=== PATIENT | male | born 1970 | race Caucasian/White ===

== ENCOUNTER 2018-03-20 12:48 | Emergency (ER) | payer MEDICAID ==
[~2018-03-20] VITALS: Ht 172.7 cm; Wt 131.5 kg
[2018-03-20] MEDS ORDERED: Depo-Testos200 MG/ML IM (13:07)
[2018-03-20] MEDS ORDERED: Prinivil10 MG PO (13:07)
[2018-03-20] MEDS ORDERED: CHLO25B PO (13:07)
== END 2018-03-20 14:03 | disposition home or self-care (01) ==
LOC: ER 12:48
DX: M79.81 Nontraumatic hematoma of soft tissue (principal); I10 Essential (primary) hypertension; F17.200 Nicotine dependence, unspecified, uncomplicated; Z79.899 Other long term (current) drug therapy
CPT/HCPCS: 73590; 99283-25

== ENCOUNTER 2020-07-15 18:48 | Emergency (ER) | payer OTHER ==
[~2020-07-15] VITALS: Ht 172.7 cm; Wt 142.9 kg
[~2020-07-15 18:48] MED LIST: CHLO25B PO; Depo-Testos200 MG/ML IM; Prinivil10 MG PO
[2020-07-15 20:08] LABS: Source, Urine Voided
[2020-07-15 20:11] LABS: Appearance, Urine Clear (Clear); Bilirubin, Urine Neg (Neg); Blood, Urine 2+ (Neg); Color, Urine Yellow (P-Yellow); Glucose Qualitative, Urine Neg (Neg); Ketones, Urine Neg (Neg); Leukocyte Esterase, Urine Neg (Neg); Nitrite, Urine Neg (Neg); Protein, Urine 3+ (Neg); Urobilinogen, Urine 3+ (Normal)
[2020-07-15 20:13] LABS: BASOPHILS ABSOLUTE AUTO 0.09 K/mm3 (0.00-0.23); BASOPHILS PERCENT AUTO 1 % (0-2); EOSINOPHILS ABSOLUTE AUTO 0.01 K/mm3 (0.00-0.68); EOSINOPHILS PERCENT AUTO 0 % (0-6); Hemoglobin 19.2 g/dL (13.5-17.5); IMMATURE GRAN ABSOLUTE AUTO 0.36 K/mm3 (0.00-0.10); IMMATURE GRAN PERCENT AUTO 3 % (0-1); LYMPHOCYTES ABSOLUTE AUTO 1.93 K/mm3 (0.84-5.20); LYMPHOCYTES PERCENT AUTO 17 % (21-46); MONOCYTES ABSOLUTE AUTO 0.89 K/mm3 (0.16-1.47); MONOCYTES PERCENT AUTO 8 % (4-13); Mean Corpuscular HGB 30.3 pg (26.0-34.0); Mean Corpuscular HGB Conc 32.5 g/dL (31.5-36.5); Mean Corpuscular Volume 93 fL (80-100); Mean Platelet Volume 11.1 fL (9.1-12.4); NEUTROPHILS ABSOLUTE AUTO 8.25 K/mm3 (1.96-9.15); NEUTROPHILS PERCENT AUTO 72 % (41-73); NRBC ABSOLUTE 0.05 K/mm3 (0.00-0.02); NRBC Auto 0.4 /100 WBC (0.0-0.2); Platelet Count 171 K/mm3 (150-400); RDW Coefficient Variation 16.1 % (11.7-14.2); RDW Standard Deviation 51.7 fL (35.1-46.3); Red Blood Cell Count 6.34 M/mm3 (4.30-5.90); White Blood Cell Count 11.53 K/mm3 (4.00-11.30)
[2020-07-15 20:18] LABS: Hematocrit 59.1 % (37.0-53.0)
[2020-07-15 20:20] LABS: Bacteria Few /hpf; Red Blood Cells, Urine 0-2 /hpf (0-2); Squamous Epithelial Cells Not Seen /hpf (Few); White Blood Cells, Urine 0-2 /hpf (0-5)
[2020-07-15 20:28] LABS: Alanine Aminotransfer (ALT/SGP 112 U/L (12-78); Albumin, Blood 4.1 g/dL (3.4-5.0); Albumin/Globulin Ratio 1.1 (0.8-1.8); Alk Phos 97 U/L (50-136); Anion Gap 3 mmol/L (6-16); Aspartate Aminotrans (AST/SGOT 40 U/L (12-37); Bilirubin, Total 0.7 mg/dL (0.1-1.0); Blood Urea Nitrogen 12 mg/dL (8-24); CO2, Blood 35 mmol/L (21-32); Calcium, Blood 9.8 mg/dL (8.5-10.1); Chloride, Blood 99 mmol/L (98-108); Creatinine, Blood 0.86 mg/dL (0.60-1.20); Globulin, Blood 3.7 g/dL (2.2-4.0); Glomerular Filtration Rate >60 (60-); Glucose, Blood 132 mg/dL (70-99); Potassium, Blood 4.3 mmol/L (3.5-5.5); Sodium, Blood 137 mmol/L (136-145); Total Protein, Blood 7.8 g/dL (6.4-8.2)
[2020-07-15] MEDS ORDERED: FURO20 PO (20:40)
[2020-07-15] MEDS ORDERED: HYDCHL25 PO (20:41)
== END 2020-07-16 00:54 | disposition home or self-care (01) ==
LOC: ER 18:48
PROVIDERS: Physician Assistant
DX: I11.0 Hypertensive heart disease with heart failure (principal); I50.9 Heart failure, unspecified
CPT/HCPCS: 36415; 71046; 74177; 80053; 81001; 83690; 83880; 84484; 85025; 93005; 93010; 96374; 99285-25; J1940; Q9967

== ENCOUNTER → 2021-02-12 | Outpatient (CLI) | payer OTHER ==
[~2021-02-12] MED LIST changes: +FURO20 PO; +HYDCHL25 PO
== END | disposition home or self-care (01) ==
LOC: LAB SHORT 19:05 → LAB 19:05
DX: L97.929 Non-pressure chronic ulcer of unspecified part of left lower leg with unspecified severity (principal)
CPT/HCPCS: 87070; 87075; 87205

== ENCOUNTER 2021-02-28 16:52 | Inpatient (IN) | payer OTHER ==
[~2021-02-28] VITALS: Ht 177.8 cm; Wt 140.5 kg
[2021-02-28 17:26] LABS: BASOPHILS ABSOLUTE AUTO 0.09 K/mm3 (0.00-0.23); BASOPHILS PERCENT AUTO 1 % (0-2); EOSINOPHILS PERCENT AUTO 0 % (0-6); Hematocrit 54.3 % (37.0-53.0); Hemoglobin 18.5 g/dL (13.5-17.5); IMMATURE GRAN ABSOLUTE AUTO 0.47 K/mm3 (0.00-0.10); IMMATURE GRAN PERCENT AUTO 3 % (0-1); LYMPHOCYTES ABSOLUTE AUTO 1.63 K/mm3 (0.84-5.20); LYMPHOCYTES PERCENT AUTO 10 % (21-46); MONOCYTES ABSOLUTE AUTO 0.81 K/mm3 (0.16-1.47); MONOCYTES PERCENT AUTO 5 % (4-13); Mean Corpuscular HGB 30.1 pg (26.0-34.0); Mean Corpuscular HGB Conc 34.1 g/dL (31.5-36.5); Mean Corpuscular Volume 88 fL (80-100); Mean Platelet Volume 12.5 fL (9.1-12.4); NEUTROPHILS PERCENT AUTO 83 % (41-73); Platelet Count 276 K/mm3 (150-400); RDW Coefficient Variation 13.2 % (11.7-14.2); RDW Standard Deviation 42.7 fL (35.1-46.3); Red Blood Cell Count 6.15 M/mm3 (4.30-5.90)
[2021-02-28 17:48] LABS: Troponin I <0.015 ng/mL (0.000-0.040)
[2021-02-28 17:58] LABS: Alanine Aminotransfer (ALT/SGP 61 U/L (12-78); Albumin, Blood 4.1 g/dL (3.4-5.0); Albumin/Globulin Ratio 0.8 (0.8-1.8); Alk Phos 126 U/L (50-136); Anion Gap 24 mmol/L (6-16); Aspartate Aminotrans (AST/SGOT 49 U/L (12-37); Bilirubin, Total 0.9 mg/dL (0.1-1.0); Blood Urea Nitrogen 21 mg/dL (8-24); Bun/Creatinine Ratio 20.2 (12.0-20.0); CO2, Blood 6 mmol/L (21-32); Calcium, Blood 9.2 mg/dL (8.5-10.1); Chloride, Blood 93 mmol/L (98-108); Creatinine, Blood 1.04 mg/dL (0.60-1.20); Globulin, Blood 4.9 g/dL (2.2-4.0); Glomerular Filtration Rate >60 (60-); Glucose, Blood 483 mg/dL (70-99); Potassium, Blood 6.2 mmol/L (3.5-5.5); Sodium, Blood 123 mmol/L (136-145)
[2021-02-28 19:05] LABS: SARS-Cov-2 (COVID-19) PCR, MMC NEGATIVE (NEGATIVE)
[2021-02-28 19:06] LABS: Base Excess Venous -25.5 mmol/L; Bicarbonate Venous 9.4 mmol/L (24.0-30.0); PCO2 Venous 18.4 mmHg (38-42); PO2 Venous 187 mmHg (38-42); pH Blood Venous 7.04 (7.34-7.37)
[2021-02-28 19:51] LABS: Magnesium, Blood 2.4 mg/dL (1.6-2.4)
[2021-02-28] MEDS ORDERED: Aspir 8181 MG PO (19:52)
[2021-02-28] MEDS ORDERED: ATOR40TA PO (19:52)
[2021-02-28] MEDS ORDERED: SPIR25 PO (19:53)
[2021-02-28] MEDS ORDERED: METO50 PO (19:53)
[2021-02-28] MEDS ORDERED: TORSE20 PO (19:54)
[2021-02-28 19:55] LABS: Beta-hydroxybutyrate 111.6 mg/dL (0.2-2.8); Phosphorus, Blood 5.2 mg/dL (2.5-4.9)
[2021-02-28 21:13] LABS: Source, Urine Voided
[2021-02-28 21:18] LABS: Appearance, Urine Clear (Clear); Bilirubin, Urine Neg (Neg); Blood, Urine 4+ (Neg); Color, Urine Yellow (P-Yellow); Glucose Qualitative, Urine 4+ (Neg); Ketones, Urine 4+ (Neg); Leukocyte Esterase, Urine Neg (Neg); Nitrite, Urine Neg (Neg); Protein, Urine 3+ (Neg); Specific Gravity, Urine 1.025 (1.003-1.022); Urobilinogen, Urine NORM (Normal)
[2021-02-28 21:53] LABS: Amorphous Light (0-Heavy); Bacteria Rare /hpf; Squamous Epithelial Cells Rare /hpf (Few); White Blood Cells, Urine 0-2 /hpf (0-5)
--- NOTE | 2021-02-28 23:20 | NUR ---
ARRIVAL TO UNIT FROM ED
--- NOTE | 2021-03-01 00:07 | NUR ---
EXTRA DOSE OF HYDRALAZINE GIVEN, OKAY PER DR. SAVAGE, ORDER CHANGE TO 10-20 PRN. SBP CURRENTLY > 200
[2021-03-01 00:11] LABS: Anion Gap 21 mmol/L (6-16); Blood Urea Nitrogen 18 mg/dL (8-24); Bun/Creatinine Ratio 18.5 (12.0-20.0); CO2, Blood 9 mmol/L (21-32); Calcium, Blood 8.6 mg/dL (8.5-10.1); Chloride, Blood 101 mmol/L (98-108); Creatinine, Blood 0.97 mg/dL (0.60-1.20); Glomerular Filtration Rate >60 (60-); Glucose, Blood 224 mg/dL (70-99); Potassium, Blood 4.1 mmol/L (3.5-5.5); Sodium, Blood 131 mmol/L (136-145)
--- NOTE | 2021-03-01 00:11 | NUR ---
DR. SAVAGE NOTIFIED OF CO2 @ 9
--- NOTE | 2021-03-01 02:32 | NUR ---
Dr. Tam notified that bicarb fluid not started because glucose is < 200. See new orders.
[2021-03-01 04:02] LABS: BASOPHILS ABSOLUTE AUTO 0.03 K/mm3 (0.00-0.23); BASOPHILS PERCENT AUTO 0 % (0-2); EOSINOPHILS PERCENT AUTO 0 % (0-6); Hemoglobin 15.6 g/dL (13.5-17.5); IMMATURE GRAN ABSOLUTE AUTO 0.25 K/mm3 (0.00-0.10); IMMATURE GRAN PERCENT AUTO 2 % (0-1); LYMPHOCYTES ABSOLUTE AUTO 1.28 K/mm3 (0.84-5.20); LYMPHOCYTES PERCENT AUTO 8 % (21-46); MONOCYTES PERCENT AUTO 7 % (4-13); Mean Corpuscular HGB 29.7 pg (26.0-34.0); Mean Corpuscular HGB Conc 33.9 g/dL (31.5-36.5); Mean Corpuscular Volume 88 fL (80-100); Mean Platelet Volume 12.8 fL (9.1-12.4); NEUTROPHILS ABSOLUTE AUTO 12.68 K/mm3 (1.96-9.15); NEUTROPHILS PERCENT AUTO 83 % (41-73); Platelet Count 223 K/mm3 (150-400); RDW Coefficient Variation 13.2 % (11.7-14.2); RDW Standard Deviation 42.3 fL (35.1-46.3); Red Blood Cell Count 5.26 M/mm3 (4.30-5.90); White Blood Cell Count 15.34 K/mm3 (4.00-11.30)
[2021-03-01 05:07] LABS: Alanine Aminotransfer (ALT/SGP 40 U/L (12-78); Albumin, Blood 3.2 g/dL (3.4-5.0); Albumin/Globulin Ratio 0.8 (0.8-1.8); Alk Phos 94 U/L (50-136); Anion Gap 20 mmol/L (6-16); Aspartate Aminotrans (AST/SGOT 19 U/L (12-37); Bilirubin, Total 0.6 mg/dL (0.1-1.0); Blood Urea Nitrogen 15 mg/dL (8-24); Bun/Creatinine Ratio 19.4 (12.0-20.0); CO2, Blood 10 mmol/L (21-32); Calcium, Blood 8.5 mg/dL (8.5-10.1); Chloride, Blood 104 mmol/L (98-108); Creatinine, Blood 0.77 mg/dL (0.60-1.20); Globulin, Blood 3.8 g/dL (2.2-4.0); Glomerular Filtration Rate >60 (60-); Glucose, Blood 171 mg/dL (70-99); Potassium, Blood 3.8 mmol/L (3.5-5.5); Sodium, Blood 134 mmol/L (136-145)
--- NOTE | 2021-03-01 06:48 | NUR ---
END OF SHIFT SUMMARY: PATIENT HAS LLE SWELLING, REDNESS, PAIN TO PALPATION, AND PULSE IS NOT PALPABLE - ABLE TO HEAR WITH DOPPLER -DIFFICULTY MAINTAINING SBP<[address] GIBSON AWARE OF SBPs>200s. HYDRALAZINE PRN NOT EFFECTIVE. LABETOLOL EFFECTIVE BUT ONLY Q6PRN. 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 PATIENT REQUIRES REASSURANCE AND CALMING METHODS INTERMITTENTLY. - FENTANYL INEFFECTIVE FOR PATIENTS BACK PAIN. DILAUDED RELIEVED PAIN ENOUGH FOR PATIENT TO BE ABLE TO FALL ASLEEP. -NO BM OVERNIGHT. URINATING WITH URINAL - ADEQUATE OUTPUT. -INSULIN GTTs ARE FOLLOWS (ESTIMATED FSBS TIMES - SEE LAB FOR EXACT TIMES) @5 - FSBS 340 - INSULIN @ 12U/HR @2215 - FSBS 261 - INSULIN @ 10 @2315 - FSBS 262 - INSULIN @ 11 @0015 - FSBS 211 - INSULIN @ 11 @0115 - FSBS 181 - INSULIN @ 11 @0215 - FSBS 170 - INSULIN @ 11 @0315 - FSBS 187 - INSULIN @ 12 @0415 - FSBS 179 - INSULIN @ 13 @0515 - FSBS 179 - INSULIN @ 14 @0615 - FSBS 178 - INSULIN @ 15
[2021-03-01 08:49] LABS: Anion Gap 15 mmol/L (6-16); Blood Urea Nitrogen 12 mg/dL (8-24); Bun/Creatinine Ratio 17.5 (12.0-20.0); CO2, Blood 13 mmol/L (21-32); Calcium, Blood 8.9 mg/dL (8.5-10.1); Chloride, Blood 107 mmol/L (98-108); Creatinine, Blood 0.69 mg/dL (0.60-1.20); Glomerular Filtration Rate >60 (60-); Glucose, Blood 151 mg/dL (70-99); Magnesium, Blood 1.8 mg/dL (1.6-2.4); Potassium, Blood 3.6 mmol/L (3.5-5.5); Sodium, Blood 135 mmol/L (136-145)
[2021-03-01 09:01] LABS: Phosphorus, Blood 1.1 mg/dL (2.5-4.9)
[2021-03-01 11:51] LABS: Anion Gap 16 mmol/L (6-16); Blood Urea Nitrogen 11 mg/dL (8-24); Bun/Creatinine Ratio 19.1 (12.0-20.0); CO2, Blood 13 mmol/L (21-32); Calcium, Blood 8.7 mg/dL (8.5-10.1); Chloride, Blood 107 mmol/L (98-108); Creatinine, Blood 0.58 mg/dL (0.60-1.20); Glomerular Filtration Rate >60 (60-); Glucose, Blood 212 mg/dL (70-99); Potassium, Blood 3.4 mmol/L (3.5-5.5); Sodium, Blood 136 mmol/L (136-145)
[2021-03-01 18:27] LABS: Anion Gap 10 mmol/L (6-16); Blood Urea Nitrogen 10 mg/dL (8-24); Bun/Creatinine Ratio 15.9 (12.0-20.0); CO2, Blood 16 mmol/L (21-32); Calcium, Blood 8.8 mg/dL (8.5-10.1); Chloride, Blood 107 mmol/L (98-108); Creatinine, Blood 0.63 mg/dL (0.60-1.20); Glomerular Filtration Rate >60 (60-); Glucose, Blood 155 mg/dL (70-99); Potassium, Blood 3.4 mmol/L (3.5-5.5); Sodium, Blood 133 mmol/L (136-145)
[2021-03-01 19:38] LABS: U Opiates Screen DETECTED; U Oxycodone Screen DETECTED
[2021-03-01 19:39] LABS: U Amphetamine Screen Not Detected; U Barbituate Screen Not Detected; U Benzodiazapine Screen Not Detected; U Buprenorphine Screen Not Detected; U Cannabinoids Screen Not Detected; U Cocaine Screen Not Detected; U Methadone Screen Not Detected; U Methamphetamine Screen Not Detected; U Phencyclidine Screen Not Detected; U Propoxyphene Screen Not Detected
--- NOTE | 2021-03-01 23:00 | NUR ---
Dr. Real notified that patient states he takes 2 tabs of 10mg oxycodone at home for pain, but does not have a prescription for it. Patient stating that current pain medicine is not enough for him. Patient's NBP elevates into SBP 190s when in pain despite PRN hydralazine and labetolol pushes. Dr. Real changes norco to oxycodone order and okay's extra dose of labetolol for NBP.
--- NOTE | 2021-03-01 23:10 | NUR ---
Dr. Real spoke with RN. Request to change q2 glucose checks from q1 while on insulin gtt because FSBS have been stable between 100-200. Also request to continue D51/2NS d/t current order only allowing 1.5L. Dr. Real okay's both orders.
[2021-03-01 23:42] LABS: Anion Gap 11 mmol/L (6-16); Blood Urea Nitrogen 9 mg/dL (8-24); CO2, Blood 17 mmol/L (21-32); Calcium, Blood 8.7 mg/dL (8.5-10.1); Chloride, Blood 107 mmol/L (98-108); Creatinine, Blood 0.53 mg/dL (0.60-1.20); Glomerular Filtration Rate >60 (60-); Glucose, Blood 113 mg/dL (70-99); Potassium, Blood 2.8 mmol/L (3.5-5.5); Sodium, Blood 135 mmol/L (136-145)
--- NOTE | 2021-03-02 01:15 | NUR ---
Dr. Tam notified of difficulty maintianing NBP. SBP remains > 160 despite scheduled lopressor, prn labetolol (including extra dose per Dr. Real), and prn hydralazine. Per. Dr. Tam, add lisinopril, increase scheduled metoprolol. Dr. Tam also notified of K at 2.8 --> give 40 IV x1
[2021-03-02 03:20] LABS: BASOPHILS ABSOLUTE AUTO 0.02 K/mm3 (0.00-0.23); BASOPHILS PERCENT AUTO 0 % (0-2); EOSINOPHILS PERCENT AUTO 0 % (0-6); Hematocrit 43.5 % (37.0-53.0); Hemoglobin 15.6 g/dL (13.5-17.5); IMMATURE GRAN ABSOLUTE AUTO 0.13 K/mm3 (0.00-0.10); IMMATURE GRAN PERCENT AUTO 1 % (0-1); LYMPHOCYTES ABSOLUTE AUTO 1.01 K/mm3 (0.84-5.20); LYMPHOCYTES PERCENT AUTO 11 % (21-46); MONOCYTES ABSOLUTE AUTO 1.05 K/mm3 (0.16-1.47); MONOCYTES PERCENT AUTO 12 % (4-13); Mean Corpuscular HGB Conc 35.9 g/dL (31.5-36.5); Mean Corpuscular Volume 84 fL (80-100); Mean Platelet Volume 11.7 fL (9.1-12.4); NEUTROPHILS ABSOLUTE AUTO 6.77 K/mm3 (1.96-9.15); NEUTROPHILS PERCENT AUTO 76 % (41-73); Platelet Count 191 K/mm3 (150-400); RDW Coefficient Variation 13.2 % (11.7-14.2); RDW Standard Deviation 40.4 fL (35.1-46.3); White Blood Cell Count 8.98 K/mm3 (4.00-11.30)
[2021-03-02 03:37] LABS: Albumin, Blood 2.8 g/dL (3.4-5.0); Anion Gap 11 mmol/L (6-16); Blood Urea Nitrogen 8 mg/dL (8-24); Bun/Creatinine Ratio 15.9 (12.0-20.0); CO2, Blood 18 mmol/L (21-32); Calcium, Blood 8.8 mg/dL (8.5-10.1); Chloride, Blood 107 mmol/L (98-108); Glomerular Filtration Rate >60 (60-); Glucose, Blood 111 mg/dL (70-99); Phosphorus, Blood 1.3 mg/dL (2.5-4.9); Sodium, Blood 136 mmol/L (136-145)
--- NOTE | 2021-03-02 06:53 | NUR ---
END OF SHIFT SUMMARY: PATIENT REMAINS HTN WITH SBP IN 170S. HR WITH FREQUENT PVS: TRIGEMINY. SINUS RHYTHM TO SINUS TACH. CHANGES TO HTN MEDS (ADD LISINOPRIL, INCREASE METOPROLOL SCHEDULED)
[2021-03-02 09:00] LABS: Anion Gap 10 mmol/L (6-16); Blood Urea Nitrogen 7 mg/dL (8-24); Bun/Creatinine Ratio 12.6 (12.0-20.0); CO2, Blood 19 mmol/L (21-32); Calcium, Blood 8.5 mg/dL (8.5-10.1); Chloride, Blood 106 mmol/L (98-108); Creatinine, Blood 0.55 mg/dL (0.60-1.20); Glomerular Filtration Rate >60 (60-); Glucose, Blood 149 mg/dL (70-99); Sodium, Blood 135 mmol/L (136-145)
[2021-03-02 12:34] LABS: Anion Gap 10 mmol/L (6-16); Blood Urea Nitrogen 7 mg/dL (8-24); CO2, Blood 19 mmol/L (21-32); Calcium, Blood 8.8 mg/dL (8.5-10.1); Chloride, Blood 104 mmol/L (98-108); Glomerular Filtration Rate >60 (60-); Glucose, Blood 209 mg/dL (70-99); Potassium, Blood 3.3 mmol/L (3.5-5.5); Sodium, Blood 133 mmol/L (136-145)
[2021-03-02 16:17] LABS: Anion Gap 9 mmol/L (6-16); Blood Urea Nitrogen 6 mg/dL (8-24); Bun/Creatinine Ratio 11.7 (12.0-20.0); CO2, Blood 19 mmol/L (21-32); Calcium, Blood 8.5 mg/dL (8.5-10.1); Chloride, Blood 104 mmol/L (98-108); Creatinine, Blood 0.51 mg/dL (0.60-1.20); Glomerular Filtration Rate >60 (60-); Glucose, Blood 177 mg/dL (70-99); Potassium, Blood 3.5 mmol/L (3.5-5.5); Sodium, Blood 132 mmol/L (136-145)
--- NOTE | 2021-03-02 23:03 | NUR ---
Notified Dr. Sargent that patient is still on insulin gtt with no Chem 8 orders in or Phos recheck. Okay to add labs.
[2021-03-02 23:08] LABS: Anion Gap 10 mmol/L (6-16); Blood Urea Nitrogen 5 mg/dL (8-24); Bun/Creatinine Ratio 10.5 (12.0-20.0); CO2, Blood 20 mmol/L (21-32); Calcium, Blood 8.6 mg/dL (8.5-10.1); Chloride, Blood 106 mmol/L (98-108); Creatinine, Blood 0.47 mg/dL (0.60-1.20); Glomerular Filtration Rate >60 (60-); Glucose, Blood 116 mg/dL (70-99); Phosphorus, Blood 1.5 mg/dL (2.5-4.9); Potassium, Blood 3.2 mmol/L (3.5-5.5); Sodium, Blood 136 mmol/L (136-145)
--- NOTE | 2021-03-02 23:30 | NUR ---
Dr. Sargent notified of lab results: k 3.2 phos 1.5: order placed for 30mmol KPhos. Dr. Sargent notified of intermittent stomach pain with consistent pain medication administrations. Last BM 03/01 but patient states it was a hard BM. Senokot PRN order placed.
[2021-03-03 03:51] LABS: BASOPHILS ABSOLUTE AUTO 0.03 K/mm3 (0.00-0.23); BASOPHILS PERCENT AUTO 0 % (0-2); EOSINOPHILS PERCENT AUTO 0 % (0-6); Hematocrit 43.5 % (37.0-53.0); Hemoglobin 15.4 g/dL (13.5-17.5); IMMATURE GRAN ABSOLUTE AUTO 0.19 K/mm3 (0.00-0.10); IMMATURE GRAN PERCENT AUTO 2 % (0-1); LYMPHOCYTES PERCENT AUTO 15 % (21-46); MONOCYTES ABSOLUTE AUTO 1.09 K/mm3 (0.16-1.47); MONOCYTES PERCENT AUTO 12 % (4-13); Mean Corpuscular HGB 30.2 pg (26.0-34.0); Mean Corpuscular HGB Conc 35.4 g/dL (31.5-36.5); Mean Corpuscular Volume 85 fL (80-100); Mean Platelet Volume 12.2 fL (9.1-12.4); NEUTROPHILS ABSOLUTE AUTO 6.49 K/mm3 (1.96-9.15); NEUTROPHILS PERCENT AUTO 71 % (41-73); Platelet Count 185 K/mm3 (150-400); RDW Coefficient Variation 13.5 % (11.7-14.2); RDW Standard Deviation 41.7 fL (35.1-46.3)
[2021-03-03 04:16] LABS: Albumin, Blood 2.6 g/dL (3.4-5.0); Anion Gap 9 mmol/L (6-16); Blood Urea Nitrogen 6 mg/dL (8-24); Bun/Creatinine Ratio 12.6 (12.0-20.0); CO2, Blood 22 mmol/L (21-32); Calcium, Blood 8.5 mg/dL (8.5-10.1); Chloride, Blood 103 mmol/L (98-108); Creatinine, Blood 0.48 mg/dL (0.60-1.20); Glomerular Filtration Rate >60 (60-); Glucose, Blood 140 mg/dL (70-99); Phosphorus, Blood 2.8 mg/dL (2.5-4.9); Potassium, Blood 2.9 mmol/L (3.5-5.5); Sodium, Blood 134 mmol/L (136-145)
--- NOTE | 2021-03-03 04:35 | NUR ---
Dr. Tam called, no answer
--- NOTE | 2021-03-03 05:52 | NUR ---
OTHER NON-EMERGENT UPDATES (CONTINUED FROM DR. SAVAGE NOTE): -INCREASED WHEEZING AUSCULTATED (NONE AUDIBLE) DENIES SOB. DENIES CP. - START PRN BREATHING TREATMENTS FOR WHEEZING? -INCREASED REDNESS TO LLE - DP PULSE REMAINS BY DOPPLER. - US NEEDED? -FREQUENT PVCs STILL, ALSO PACs, POSSIBLE PJCs - EKG NEEDED? -BP BETTER COMPARED TO PREVIOUS NIGHTS, BUT STILL MOSTLY ABOVE 160 SYSTOLIC. 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 ALSO PATIENT SEEMS CONFUSED ABOUT HYDROCHLORATHIAZIDE AND TORSEMIDE (AND ALDACTONE) STATING HE NEVER TOOK ANY MEDS THAT CAUSED INCREASED URINE PRODUCTION. WEIGHT KG INCREASE BY APPOX 4KG SINCE ADMISSION. K CONTINUES TO DROP WITH INSULIN GTT. - START POTASSIUM SPARING DIURETIC?
--- NOTE | 2021-03-03 13:09 | NUR ---
New Admit to [facility] The patient is a/ox4 to person, place, time and event. The patient is pleasent and cooperative with care. He has recieved insulin and potassium prior to transfer to the [facility] floor. The patient is on RA, no SOB or chest pain. Lungs were course in bilateral bases and wheezing heard on expiration. the patient stated he was told he has diabetes and this nurse had him explain what that meant to him. He explained that he might need insulin. The patient was educated about what type 2 diabetes. The patient and this nurse identified education goals while inpatient. The patient will learn how to use insulin pens and check their blood sugar. The patient has been educated about thier room and how to use the call light.
--- NOTE | 2021-03-03 17:58 | NUR ---
Shift Summary, The patient is A/OX4 TO PERSON,PLACE, TIME AND EVENT. The patient is pleasent and cooperative with care. The patient is a 1 prsn assist to the bathroom. No polyuria, polydipsia, polyphagia noiticed this shift. The patient denies any SOB or chest pain. The goal this shift was to provide teaching about taking blood glucose via finger stick and insulin injection training. The patient has been interactive with the nurses during education and he asks questions. The patient stated he would be open to talk with diatition about diabetes diet. The patient is currently resting in his bed watching TV.
[2021-03-04 04:49] LABS: Albumin, Blood 2.7 g/dL (3.4-5.0); Anion Gap 12 mmol/L (6-16); Blood Urea Nitrogen 9 mg/dL (8-24); Bun/Creatinine Ratio 15.8 (12.0-20.0); CO2, Blood 19 mmol/L (21-32); Calcium, Blood 8.8 mg/dL (8.5-10.1); Chloride, Blood 103 mmol/L (98-108); Creatinine, Blood 0.57 mg/dL (0.60-1.20); Glomerular Filtration Rate >60 (60-); Glucose, Blood 240 mg/dL (70-99); Phosphorus, Blood 2.4 mg/dL (2.5-4.9); Potassium, Blood 3.5 mmol/L (3.5-5.5); Sodium, Blood 134 mmol/L (136-145)
--- NOTE | 2021-03-04 05:30 | NUR ---
PATIENT IS ALERT AND ORIENTED X4. PATIENT WAS AWAKE INTERMITTENTLY THIS NIGHT. PATIENT REQUESTED PAIN MEDICINE FOR HIS BACK PAIN. PATIENT WAS MEDICATED WITH OXYCODONE 10MG X2 AND FENTANYL 25MCG X1. PATIENT REPORTED THE PAIN HAS IMPROVED WITH A PAIN LEVEL OF 3 THIS MORNING. PATIENT DENIES SOB OR CHEST PAIN. PATIENT DENIES ANY HYPO OR HYPERGLYCEMIC SYMPTOMS. WILL CONTINUE TO MONITOR.
[2021-03-04 11:25] LABS: Anion Gap 8 mmol/L (6-16); Blood Urea Nitrogen 11 mg/dL (8-24); Bun/Creatinine Ratio 19.9 (12.0-20.0); CO2, Blood 23 mmol/L (21-32); Calcium, Blood 8.3 mg/dL (8.5-10.1); Chloride, Blood 99 mmol/L (98-108); Creatinine, Blood 0.55 mg/dL (0.60-1.20); Glomerular Filtration Rate >60 (60-); Glucose, Blood 315 mg/dL (70-99); Potassium, Blood 3.6 mmol/L (3.5-5.5); Sodium, Blood 130 mmol/L (136-145)
[2021-03-04] MEDS ORDERED: BASAGLAR K100 UNIT/6 SC (13:43)
[2021-03-04] MEDS ORDERED: HUMULIN R100 UNIT/2 SC (13:47)
[2021-03-04] MEDS ORDERED: MUPIROCIN1 G1 TOP (13:48)
[2021-03-04] MEDS ORDERED: LISI20 PO (13:48)
--- NOTE | 2021-03-04 15:11 | NUR ---
PT DISCHARGED THE PT VERBALIZED UNDERSTANDING OF THE DC INSTRUCTIONS. THE PTS PERSCRIPTIONS WERE FAXED TO [facility] REQUESTED. A FOLLOW UP APPOINTMENT WAS MADE PRIOT TO THE PTS DC WITH HIS PCP. PT WAS TRANSFERED VIA WHEELCHAIR ACCOMPANIED BY THE GEOGRAPHIC INFORMATION SYSTEMS ENGINEER. THE PT APPEARED TO BE BREATHING EASILY AND A/OX4 AT THE TIME OF DC
== END 2021-03-04 14:35 | disposition home or self-care (01) | DRG 638 ==
LOC: ER 16:52 → ICUW 16:53 → ER 20:06 → ICUW 20:06 → MEDS 03-01 17:21 → ICUW 03-01 17:21 → MEDS 03-03 12:15
PROVIDERS: Emergency Medicine; Family Medicine; Internal Medicine; Physician Assistant; ADMIT Internal Medicine
DX: E11.10 Type 2 diabetes mellitus with ketoacidosis without coma (principal); E87.1 Hypo-osmolality and hyponatremia; Z68.42 Body mass index [BMI] 45.0-49.9, adult; I10 Essential (primary) hypertension; E66.01 Morbid (severe) obesity due to excess calories; D72.828 Other elevated white blood cell count; M54.50 Low back pain, unspecified; Z20.822 Contact with and (suspected) exposure to COVID-19; Z79.82 Long term (current) use of aspirin; Z79.899 Other long term (current) drug therapy; E78.5 Hyperlipidemia, unspecified; E86.0 Dehydration; I16.0 Hypertensive urgency; E83.39 Other disorders of phosphorus metabolism; E87.6 Hypokalemia; Z91.14 Patient's other noncompliance with medication regimen; Z23 Encounter for immunization
CPT/HCPCS: 36415; 71045; 80048; 80053; 80069; 81001; 82010; 82803; 82947; 83036; 83735; 83880; 84100; 84132; 84484; 85025; 93005; 93010; 96372; 96374; 96375; 96376; 97165; 99285-25; A9270; G0378; J0360; J1170; J1650; J1815; J1940; J3010; J3480; J7030; J7040; J7042; J7060; U0004

== ENCOUNTER → 2023-08-20 | Outpatient (CLI) | payer SELFPAY ==
[~2023-08-20] MED LIST changes: +ATOR40TA PO; +Aspir 8181 MG PO; +BASAGLAR K100 UNIT/6 SC; +HUMULIN R100 UNIT/2 SC; +LISI20 PO; +METO50 PO; +MUPIROCIN1 G1 TOP; +SPIR25 PO; +TORSE20 PO
[2023-08-20 13:25] LABS: BASOPHILS ABSOLUTE AUTO 0.07 K/mm3 (0.00-0.23); BASOPHILS PERCENT AUTO 1 % (0-2); EOSINOPHILS PERCENT AUTO 1 % (0-6); Hematocrit 50.9 % (37.0-53.0); Hemoglobin 16.6 g/dL (13.5-17.5); IMMATURE GRAN ABSOLUTE AUTO 0.06 K/mm3 (0.00-0.10); IMMATURE GRAN PERCENT AUTO 1 % (0-1); LYMPHOCYTES ABSOLUTE AUTO 1.61 K/mm3 (0.84-5.20); LYMPHOCYTES PERCENT AUTO 16 % (21-46); MONOCYTES ABSOLUTE AUTO 0.67 K/mm3 (0.16-1.47); MONOCYTES PERCENT AUTO 7 % (4-13); Mean Corpuscular HGB 30.9 pg (26.0-34.0); Mean Corpuscular HGB Conc 32.6 g/dL (31.5-36.5); Mean Corpuscular Volume 95 fL (80-100); NEUTROPHILS ABSOLUTE AUTO 7.35 K/mm3 (1.96-9.15); NEUTROPHILS PERCENT AUTO 75 % (41-73); Platelet Count 207 K/mm3 (150-400); RDW Coefficient Variation 13.8 % (11.7-14.2); RDW Standard Deviation 47.6 fL (35.1-46.3); Red Blood Cell Count 5.38 M/mm3 (4.30-5.90); White Blood Cell Count 9.86 K/mm3 (4.00-11.30)
[2023-08-20 13:49] LABS: Albumin, Blood 4.2 g/dL (3.4-5.0); Albumin/Globulin Ratio 1.2 (0.8-1.8); Bilirubin, Total 0.6 mg/dL (0.1-1.0); Bun/Creatinine Ratio 14.7 (12.0-20.0); Calcium, Blood 9.2 mg/dL (8.5-10.1); Creatinine, Blood 1.36 mg/dL (0.60-1.20); Globulin, Blood 3.6 g/dL (2.2-4.0); Potassium, Blood 4.3 mmol/L (3.5-5.5); Total Protein, Blood 7.8 g/dL (6.4-8.2)
== END | disposition home or self-care (01) ==
LOC: LAB SHORT 13:19 → LAB 13:19
PROVIDERS: Physician Assistant Surgical
DX: R53.83 Other fatigue (principal)
CPT/HCPCS: 80053; 85025

== ENCOUNTER 2024-04-18 05:23 | Day surgery (SDC) | payer SELFPAY ==
[2024-04-18] MEDS ORDERED: Lidocaine HCl 4% Cream 5 GM ONE (13:16)
== END 2024-04-18 23:54 | disposition home or self-care (01) ==
LOC: WOUND 05:23
DX: E11.622 Type 2 diabetes mellitus with other skin ulcer (principal); L97.812 Non-pressure chronic ulcer of other part of right lower leg with fat layer exposed; I10 Essential (primary) hypertension; G47.33 Obstructive sleep apnea (adult) (pediatric); Z87.891 Personal history of nicotine dependence; E11.51 Type 2 diabetes mellitus with diabetic peripheral angiopathy without gangrene; M19.90 Unspecified osteoarthritis, unspecified site
CPT/HCPCS: A9270; G0463

== ENCOUNTER 2024-05-27 12:18 | Emergency (ER) | payer SELFPAY ==
[~2024-05-27] VITALS: Ht 172.7 cm; Wt 147.4 kg
[2024-05-27 12:56] LABS: CORONAVIRUS COVID-19 AG Negative (NEGATIVE); INFLUENZA A AG Negative (NEGATIVE); INFLUENZA B AG Negative (NEGATIVE)
[2024-05-27 14:36] LABS: BASOPHILS ABSOLUTE AUTO 0.11 K/mm3 (0.00-0.23); BASOPHILS PERCENT AUTO 1 % (0-2); EOSINOPHILS ABSOLUTE AUTO 0.16 K/mm3 (0.00-0.68); EOSINOPHILS PERCENT AUTO 1 % (0-6); Hematocrit 36.5 % (37.0-53.0); Hemoglobin 11.9 g/dL (13.5-17.5); IMMATURE GRAN PERCENT AUTO 2 % (0-1); LYMPHOCYTES ABSOLUTE AUTO 1.23 K/mm3 (0.84-5.20); LYMPHOCYTES PERCENT AUTO 7 % (21-46); MONOCYTES PERCENT AUTO 7 % (4-13); Mean Corpuscular HGB 30.8 pg (26.0-34.0); Mean Corpuscular HGB Conc 32.6 g/dL (31.5-36.5); Mean Corpuscular Volume 95 fL (80-100); Mean Platelet Volume 9.7 fL (9.1-12.4); NEUTROPHILS ABSOLUTE AUTO 15.09 K/mm3 (1.96-9.15); NEUTROPHILS PERCENT AUTO 83 % (41-73); Platelet Count 316 K/mm3 (150-400); RDW Coefficient Variation 15.1 % (11.7-14.2); RDW Standard Deviation 52.5 fL (35.1-46.3); Red Blood Cell Count 3.86 M/mm3 (4.30-5.90); White Blood Cell Count 18.29 K/mm3 (4.00-11.30)
[2024-05-27 14:51] LABS: Albumin, Blood 2.9 g/dL (3.4-5.0); Albumin/Globulin Ratio 0.5 (0.8-1.8); Bilirubin, Total 0.4 mg/dL (0.1-1.0); Bun/Creatinine Ratio 36.9 (12.0-20.0); Calcium, Blood 9.7 mg/dL (8.5-10.1); Creatinine, Blood 1.49 mg/dL (0.60-1.20); Globulin, Blood 5.4 g/dL (2.2-4.0); Total Protein, Blood 8.3 g/dL (6.4-8.2)
[2024-05-27] MEDS ORDERED: Clindamycin 600mg in D5W 50 ML IV ONE (17:45)
[2024-05-27] MEDS ORDERED: AMOCLA875 PO (18:59)
[2024-05-27] MEDS ORDERED: DOXY100 PO (18:59)
[2024-05-27 19:00] VITALS: BP 142/79
== END 2024-05-27 19:15 | disposition home or self-care (01) ==
LOC: ER 12:18
PROVIDERS: Student in an Organized Health Care Education/Training Program
DX: L03.116 Cellulitis of left lower limb (principal); L03.115 Cellulitis of right lower limb; R79.89 Other specified abnormal findings of blood chemistry; I10 Essential (primary) hypertension; F17.210 Nicotine dependence, cigarettes, uncomplicated; Z79.4 Long term (current) use of insulin; Z79.82 Long term (current) use of aspirin; Z79.899 Other long term (current) drug therapy
CPT/HCPCS: 36415; 71046; 80053; 83605; 83880; 85025; 87040; 87428-QW; 93005; 93010; 96365; 99284-25

== ENCOUNTER 2024-06-03 14:59 | Emergency (ER) | payer SELFPAY ==
[~2024-06-03] VITALS: Ht 172.7 cm; Wt 151.9 kg
[~2024-06-03 14:59] MED LIST changes: +AMOCLA875 PO; +DOXY100 PO
[2024-06-03 15:44] LABS: BASOPHILS ABSOLUTE AUTO 0.17 K/mm3 (0.00-0.23); BASOPHILS PERCENT AUTO 1 % (0-2); EOSINOPHILS ABSOLUTE AUTO 0.41 K/mm3 (0.00-0.68); EOSINOPHILS PERCENT AUTO 3 % (0-6); Hematocrit 38.1 % (37.0-53.0); Hemoglobin 12.5 g/dL (13.5-17.5); IMMATURE GRAN ABSOLUTE AUTO 0.31 K/mm3 (0.00-0.10); IMMATURE GRAN PERCENT AUTO 2 % (0-1); LYMPHOCYTES ABSOLUTE AUTO 2.62 K/mm3 (0.84-5.20); LYMPHOCYTES PERCENT AUTO 16 % (21-46); MONOCYTES PERCENT AUTO 6 % (4-13); Mean Corpuscular HGB 30.5 pg (26.0-34.0); Mean Corpuscular HGB Conc 32.8 g/dL (31.5-36.5); Mean Corpuscular Volume 93 fL (80-100); Mean Platelet Volume 9.5 fL (9.1-12.4); NEUTROPHILS ABSOLUTE AUTO 11.55 K/mm3 (1.96-9.15); NEUTROPHILS PERCENT AUTO 72 % (41-73); Platelet Count 519 K/mm3 (150-400); RDW Coefficient Variation 14.6 % (11.7-14.2); RDW Standard Deviation 50.1 fL (35.1-46.3); White Blood Cell Count 16.06 K/mm3 (4.00-11.30)
[2024-06-03 16:01] LABS: Albumin, Blood 3.5 g/dL (3.4-5.0); Albumin/Globulin Ratio 0.7 (0.8-1.8); Bilirubin, Total 0.5 mg/dL (0.1-1.0); Bun/Creatinine Ratio 17.8 (12.0-20.0); Calcium, Blood 10.1 mg/dL (8.5-10.1); Creatinine, Blood 1.69 mg/dL (0.60-1.20); Globulin, Blood 5.2 g/dL (2.2-4.0); Potassium, Blood 4.4 mmol/L (3.5-5.5); Total Protein, Blood 8.7 g/dL (6.4-8.2)
[2024-06-03] MEDS ORDERED: ZYRTEC10 M2 PO (19:18)
[2024-06-03] MEDS ORDERED: TORSE20 (19:19)
[2024-06-03 19:30] VITALS: BP 132/71
== END 2024-06-03 19:47 | disposition home or self-care (01) ==
LOC: ER 14:59
PROVIDERS: Physician Assistant
DX: I87.2 Venous insufficiency (chronic) (peripheral) (principal); L03.115 Cellulitis of right lower limb; L97.229 Non-pressure chronic ulcer of left calf with unspecified severity; L97.219 Non-pressure chronic ulcer of right calf with unspecified severity; I10 Essential (primary) hypertension; F17.210 Nicotine dependence, cigarettes, uncomplicated; Z79.4 Long term (current) use of insulin; Z79.899 Other long term (current) drug therapy
CPT/HCPCS: 80053; 85025; 99283